=== PATIENT | female | born 1990 | race Caucasian/White ===

== ENCOUNTER 2017-06-13 11:34 | Inpatient (IN) | payer OTHER ==
[2017-06-13 12:28] VITALS: BMI 23.8
--- NOTE | 2017-06-13 13:40 | HP ---
COWS - Scale Resting Pulse: 0= [place] 80 or Below Sweatin= Chills/Flushing Restless Observation: 3= Extraneous Movement Pupil Size: 2= Moderately Dilated Bone or Joint Aches: 2= Severe Diffuse Aches Runny Nose/ Eye Tearin= Runny Nose/Eyes GI Upset > 30mins: 3= Vomiting/Diarrhea Tremor Observation: 2= Slight Tremor Visible Yawning Observation: 2= >3x During Session Anxiety or Irritability: 2=Irritable/Anxious Goose Flesh Skin: 0=Smooth Skin COWS Score: 19 Admission ROS BHS - HPI Chief Complaint: i need help to stop using percocet Allergies/Adverse Reactions: Allergies Allergy/AdvReac Type Severity Reaction Status Date / Time No Known Allergies Allergy Verified 06/13/17 13:41 History of Present Illness: this 26 years old female with opioid dependence,percocet,seeking detox,never been in detox before depression need help to stop using percocet Exam Limitations: No Limitations - Ebola screening Have you traveled outside of the country in the last 21 days: No Have you been sick,other than usual withdrawal symptoms: No - Review of Systems Constitutional: Chills, Loss of Appetite, Malaise, Night Sweats, Changes in sleep, Weakness EENT: reports: Nose Congestion Respiratory: reports: No Symptoms reported GI: reports: Diarrhea, Nausea, Vomiting, Abdominal cramping : reports: No Symptoms Reported Musculoskeletal: reports: Back Pain, Joint Pain, Muscle Pain, Joint Stiffness Integumentary: reports: Dryness Endocrine: reports: No Symptoms Reported Hematology: reports: No Symptoms Reported Psychiatric: reports: Depressed Patient History - Patient Medical History Hx Anemia: No Hx Asthma: No Hx Chronic Obstructive Pulmonary Disease (COPD): No Hx Cancer: No Hx Cardiac Disorders: No Hx Congestive Heart Failure: No Hx Hypertension: No Hx Hypercholesterolemia: No Hx Pacemaker: No HX Cerebrovascular Accident: No Hx Seizures: No Hx Dementia: No Hx Diabetes: No Hx Gastrointestinal Disorders: No Hx Liver Disease: No Hx Genitourinary Disorders: No Hx Sexually Transmitted Disorders: No Hx Renal Disease (ESRD): No Hx Thyroid Disease: No Hx Human Immunodeficiency Virus (HIV): No (06/25 negative) Hx Hepatitis C: No Hx Depression: Yes (no med) Hx Suicide Attempt: No Hx Bipolar Disorder: No Hx Schizophrenia: No Other Medical History: no suicidal,no homicidal - Patient Surgical History Past Surgical History: No - PPD History Previous Implant?: Yes Documented Results: Negative w/o proof Implanted On Prior [facility] Admission?: No PPD to be Administered?: Yes - Reproductive History Patient is a Female of Child Bearing Age (11 -55 yrs old): Yes Last Menstrual Period: 05/27/17 Patient : No - Smoking Cessation Smoking history: Never smoked - Substance & Tx. History Hx Alcohol Use: No Hx Substance Use: Yes Substance Use Type: Opiates Hx Substance Use Treatment: No - Substances Abused percocet Route: Oral Frequency: Daily Amount used: 40 to50 mgs Age of first use: 25 Date of Last Use: 06/12/17 Marijuana/Hashish Route: Smoking Frequency: Daily Amount used: 20$ Age of first use: 16 Date of Last Use: 06/11/17 Family Disease History - Family Disease History Family History: Denies Admission Physical Exam [facility] - Vital Signs Vital Signs: Vital Signs - 24 hr 06/13/17 12:25 Temperature 97.0 F L Pulse Rate 78 Respiratory 18 Rate Blood Pressure 115/76 - Physical General Appearance: Yes: Moderate Distress, Tremorous, Irritable, Sweating, Anxious HEENTM: Yes: LIAN, Nasal Congestion Respiratory: Yes: Lungs Clear, Normal Breath Sounds, No Respiratory Distress Neck: Yes: Within Normal Limits, Supple, Trachea in good position Breast: Yes: Breast Exam Deferred Cardiology: Yes: Within Normal Limits, Regular Rhythm, Regular Rate, S1, S2 Abdominal: Yes: Within Normal Limits, Normal Bowel Sounds, Non Tender, Flat, Soft Genitourinary: Yes: Within Normal Limits Back: Yes: Muscle Spasm Musculoskeletal: Yes: Back pain, Joint Stiffness, Muscle Pain Extremities: Yes: Tremors 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 NML intact, Fully Oriented, Alert, Motor Strength 5/5 Integumentary: Yes: Dry Lymphatic: Yes: Within Normal Limits - Diagnostic (1) Opioid dependence with withdrawal Current Visit: Yes Status: Acute (2) Depression Current Visit: Yes Status: Acute Cleared for Admission [facility] - Detox or Rehab [facility] Level of Care: Medically Managed Detox Regimen/Protocol: Methadone [facility] Breath Alcohol Content Breath Alcohol Content: 0 Urine Pregancy Test - Result Urine Test Results: Negative- NO Line Present Urine Drug Screen - Results Drug Screen Negative: No Urine Drug Screen Results: THC-Marijuana, OXY-Oxycodone
[2017-06-13] MEDS ORDERED: MENTHOL/PHENOL 1 EACH UD MM PRN (13:54)
[2017-06-13] MEDS ORDERED: LOPERAMIDE HCL 2 MG CAPSULE PO PRN (13:54)
[2017-06-13] MEDS ORDERED: IBUPROFEN 400 MG TABLET (FP) PO PRN (13:54)
[2017-06-13] MEDS ORDERED: ACETAMINOPHEN 325 MG TABLET (FP) PO PRN (13:54)
[2017-06-13] MEDS ORDERED: guaiFENesin/D-METHORPHAN HB 10 ML UNIT-DOSE CUPS PO PRN (13:54)
[2017-06-13] MEDS ORDERED: MAG HYDROX/AL HYDROX/SIMETH 30 ML UNIT-DOSE CUP PO PRN (13:54)
[2017-06-13] MEDS ORDERED: MAGNESIUM CITRATE 300 ML BOTTLE PO PRN (13:54)
[2017-06-13] MEDS ORDERED: MAGNESIUM HYDROX 2400MG/30ML ORAL SUSPENSION 30 ML CUP PO PRN (13:54)
[2017-06-13] MEDS ORDERED: P-EPHED 60MG/TRIPROLIDI 2.5MG TABLET PO PRN (13:54)
[2017-06-13] MEDS ORDERED: METHADONE HCL 10 MG TABLET (FOR DETOX USE ONLY) PO ONE ×2 (15:00→23:00)
[2017-06-13] MEDS: diazePAM 5 MG TABLET PO PRN ×2 (15:49→22:43)
[2017-06-13 22:15] LABS: URINE APPEARANCE CLEAR; URINE BILIRUBIN NEGATIVE (NEGATIVE); URINE BLOOD NEGATIVE (NEGATIVE); URINE COLOR LTYELLOW; URINE GLUCOSE (UA) NEGATIVE (NEGATIVE); URINE KETONE NEGATIVE (NEGATIVE); URINE LEUK ESTERASE NEGATIVE (NEGATIVE); URINE NITRITE NEGATIVE (NEGATIVE); URINE PROTEIN NEGATIVE (NEGATIVE); URINE UROBILINOGEN NEGATIVE mg/dL (0.2-1.0)
[2017-06-13] MEDS: THIAMINE HCL 100 MG TABLET (FP) PO SCH (22:43)
[2017-06-14] MEDS: diazePAM 5 MG TABLET PO PRN ×5 (06:17→23:44)
[2017-06-14] MEDS ORDERED: METHADONE HCL 10 MG TABLET (FOR DETOX USE ONLY) PO ONE (10:00)
[2017-06-14 10:20] LABS: HEMATOCRIT 44.2 % (32.4-45.2); HEMOGLOBIN 14.5 GM/dL (10.7-15.3); MCHC 32.9 g/dl (32.0-36.0); MEAN CELL VOLUME 97.3 fl (80-96); MEAN PLT VOLUME 9.1 fl (7.5-11.1); PLATELET COUNT 250 K/MM3 (134-434); RBC 4.55 M/mm3 (3.60-5.2); WHITE BLOOD COUNT 6.7 K/mm3 (4.0-10.0)
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
[2017-06-14 10:24] LABS: CHLORIDE 101 mmol/L (98-107); POTASSIUM 4.1 mmol/L (3.5-5.1); SODIUM 136 mmol/L (136-145)
[2017-06-14 10:31] LABS: ALBUMIN 3.8 g/dl (3.4-5.0); ALK PHOS 57 U/L (45-117); ANION GAP 6 (8-16); BILIRUBIN,TOTAL 0.6 mg/dL (0.2-1.0); BLOOD UREA NITROGEN 10 mg/dL (7-18); CALCIUM 9.5 mg/dL (8.5-10.1); CO2 29 mmol/L (21-32); CREATININE 0.8 mg/dL (0.55-1.02); GLUCOSE,RANDOM 120 mg/dL (74-106); SGOT/AST 14 U/L (15-37); SGPT/ALT 24 U/L (12-78); TOT PROT 7.5 g/dl (6.4-8.2)
[2017-06-14] MEDS: PRENATAL VITAMINS W/ FOLIC ACID TABLET (FP) PO SCH (10:41)
--- NOTE | 2017-06-14 11:39 | EKG ---
Test Reason : Blood Pressure : / mmHG Vent. Rate : 066 BPM Atrial Rate : 066 BPM P-R Int : 160 ms QRS Dur : 084 ms QT Int : 398 ms P-R-T Axes : 054 029 028 degrees QTc Int : 417 ms NORMAL SINUS RHYTHM WITH SINUS ARRHYTHMIA NORMAL ECG NO PREVIOUS ECGS AVAILABLE Confirmed by LESA WARD MD ([id number]) on 06/14/2017 11:39:02 AM Referred By: IRENE SIMMONS Confirmed By:LESA WARD MD
[2017-06-14] MEDS: hydrOXYzine PAMOATE 50 MG CAPSULE (FP) PO PRN ×2 (12:51→22:33)
--- NOTE | 2017-06-14 15:07 | PN ---
BHS COWS - Scale Resting Pulse: 0= [place] 80 or Below Sweatin= Chills/Flushing Restless Observation: 3= Extraneous Movement Pupil Size: 0= Normal to Room Light Bone or Joint Aches: 1= Mild Discomfort Runny Nose/ Eye Tearin= Runny Nose/Eyes GI Upset > 30mins: 1= Stomach Cramp Tremor Observation of Outstretched Hands: 1= Tremor [place], Not Seen Yawning Observation: 2= >3x During Session Anxiety or Irritability: 2=Irritable/Anxious Goose Flesh Skin: 0=Smooth Skin COWS Score: 13 S Progress Note (SOAP) Subjective: SWEATING NAUSEA RESTLESSNESS AGITATION Objective: 06/14/17 15:08 Vital Signs Temperature 98.1 F 06/14/17 10:00 Pulse Rate 81 06/14/17 10:00 Respiratory Rate 18 06/14/17 10:00 Blood Pressure 119/68 06/14/17 10:00 O2 Sat by Pulse Oximetry (%) Laboratory Last Values WBC 6.7 K/mm3 (4.0-10.0) 06/14/17 07:40 RBC 4.55 M/mm3 (3.60-5.2) 06/14/17 07:40 Hgb 14.5 GM/dL (10.7-15.3) 06/14/17 07:40 Hct 44.2 % (32.4-45.2) 06/14/17 07:40 MCV 97.3 fl (80-96) H 06/14/17 07:40 MCH 32.0 pg (25.7-33.7) 06/14/17 07:40 MCHC 32.9 g/dl (32.0-36.0) 06/14/17 07:40 RDW 13.0 % (11.6-15.6) 06/14/17 07:40 Plt Count 250 K/MM3 (134-434) 06/14/17 07:40 MPV 9.1 fl (7.5-11.1) 06/14/17 07:40 Sodium 136 mmol/L (136-145) 06/14/17 07:40 Potassium 4.1 mmol/L (3.5-5.1) 06/14/17 07:40 Chloride 101 mmol/L (98-107) 06/14/17 07:40 Carbon Dioxide 29 mmol/L (21-32) 06/14/17 07:40 Anion Gap 6 (8-16) L 06/14/17 07:40 BUN 10 mg/dL (7-18) 06/14/17 07:40 Creatinine 0.8 mg/dL (0.55-1.02) 06/14/17 07:40 Creat Clearance w eGFR > 60 (>60) 06/14/17 07:40 Random Glucose 120 mg/dL (74-106) H 06/14/17 07:40 Calcium 9.5 mg/dL (8.5-10.1) 06/14/17 07:40 Total Bilirubin 0.6 mg/dL (0.2-1.0) 06/14/17 07:40 AST 14 U/L (15-37) L 06/14/17 07:40 ALT 24 U/L (12-78) 06/14/17 07:40 Alkaline Phosphatase 57 U/L (45-117) 06/14/17 07:40 Total Protein 7.5 g/dl (6.4-8.2) 06/14/17 07:40 Albumin 3.8 g/dl (3.4-5.0) 06/14/17 07:40 Urine Color Ltyellow 06/13/17 21:00 Urine Appearance Clear 06/13/17 21:00 Urine pH 6.0 (5.0-8.0) 06/13/17 21:00 Ur Specific [place] 1.013 (1.001-1.035) 06/13/17 21:00 Urine Protein Negative (NEGATIVE) 06/13/17 21:00 Urine Glucose (UA) Negative (NEGATIVE) 06/13/17 21:00 Urine Ketones Negative (NEGATIVE) 06/13/17 21:00 Urine Blood Negative (NEGATIVE) 06/13/17 21:00 Urine Nitrite Negative (NEGATIVE) 06/13/17 21:00 Urine Bilirubin Negative (NEGATIVE) 06/13/17 21:00 Urine Urobilinogen Negative mg/dL (0.2-1.0) 06/13/17 21:00 Ur Leukocyte Esterase Negative (NEGATIVE) 06/13/17 21:00 RPR Titer Nonreactive (NONREACTIVE) 06/14/17 07:40 HIV 1&2 Antibody Screen Negative 06/14/17 07:40 HIV P24 Antigen Negative 06/14/17 07:40 LAB NOTED Assessment: 06/14/17 15:09 WITHDRAWAL SX Plan: CONTINUE DETOX
[2017-06-14] MEDS: traZODone HCL 50 MG TABLET (FP) PO SCH (22:33)
[2017-06-14] MEDS: THIAMINE HCL 100 MG TABLET (FP) PO SCH (22:33)
[2017-06-15] MEDS ORDERED: METHADONE HCL 5 MG TABLET (FOR DETOX USE ONLY) PO ONE (10:00)
[2017-06-15] MEDS: PRENATAL VITAMINS W/ FOLIC ACID TABLET (FP) PO SCH (10:47)
--- NOTE | 2017-06-15 11:23 | PN ---
[facility] CIWA - CIWA Score Nausea/Vomitin-No Nausea/No Vomiting Muscle Tremors: 3 Anxiety: 3 Agitation: 3 Paroxysmal Sweats: 3 Orientation: 0-Oriented Tacttile Disturbances: 0-None Auditory Disturbances: 0-None Visual Disturbances: 0-None Headache: 0-None Present CIWA-Ar Total Score: 12 BHS Progress Note (SOAP) Subjective: agitation anxiety sweats body aches Objective: 06/15/17 11:22 Vital Signs Temperature 97 F L 06/15/17 06:15 Pulse Rate 78 06/15/17 06:15 Respiratory Rate 18 06/15/17 06:15 Blood Pressure 101/63 06/15/17 06:15 O2 Sat by Pulse Oximetry (%) Laboratory Tests 06/13/17 06/14/17 06/14/17 21:00 07:40 07:40 WBC 6.7 RBC 4.55 Hgb 14.5 Hct 44.2 MCV 97.3 H MCH 32.0 MCHC 32.9 RDW 13.0 Plt Count 250 MPV 9.1 Sodium 136 Potassium 4.1 Chloride 101 Carbon Dioxide 29 Anion Gap 6 L BUN 10 Creatinine 0.8 Creat Clearance w eGFR > 60 Random Glucose 120 H Calcium 9.5 Total Bilirubin 0.6 AST 14 L ALT 24 Alkaline Phosphatase 57 Total Protein 7.5 Albumin 3.8 Urine Color Ltyellow Urine Appearance Clear Urine pH 6.0 Ur Specific [place] 1.013 Urine Protein Negative Urine Glucose (UA) Negative Urine Ketones Negative Urine Blood Negative Urine Nitrite Negative Urine Bilirubin Negative Urine Urobilinogen Negative Ur Leukocyte Esterase Negative RPR Titer HIV 1&2 Antibody Screen HIV P24 Antigen 06/14/17 06/14/17 07:40 07:40 WBC RBC Hgb Hct MCV MCH MCHC RDW Plt Count MPV Sodium Potassium Chloride Carbon Dioxide Anion Gap BUN Creatinine Creat Clearance w eGFR Random Glucose Calcium Total Bilirubin AST ALT Alkaline Phosphatase Total Protein Albumin Urine Color Urine Appearance Urine pH Ur Specific [place] Urine Protein Urine Glucose (UA) Urine Ketones Urine Blood Urine Nitrite Urine Bilirubin Urine Urobilinogen Ur Leukocyte Esterase RPR Titer Nonreactive HIV 1&2 Antibody Screen Negative HIV P24 Antigen Negative aaox3 ambulating no acute distress Assessment: 06/15/17 11:22 withdrawal sx Plan: continue detox increase fluids
[2017-06-15] MEDS: diazePAM 5 MG TABLET PO PRN ×2 (15:17→19:33)
[2017-06-15] MEDS: hydrOXYzine PAMOATE 50 MG CAPSULE (FP) PO PRN (22:42)
[2017-06-15] MEDS: traZODone HCL 50 MG TABLET (FP) PO SCH (22:42)
[2017-06-15] MEDS: THIAMINE HCL 100 MG TABLET (FP) PO SCH (22:42)
[2017-06-16] MEDS: diazePAM 5 MG TABLET PO PRN ×2 (07:19→11:09)
[2017-06-16] MEDS ORDERED: METHADONE HCL 5 MG TABLET (FOR DETOX USE ONLY) PO ONE (10:00)
[2017-06-16] MEDS: PRENATAL VITAMINS W/ FOLIC ACID TABLET (FP) PO SCH (11:06)
--- NOTE | 2017-06-16 11:35 | PN ---
BHS Progress Note (SOAP) Subjective: sweats anxiety Objective: 06/16/17 11:34 Vital Signs Temperature 98.1 F 06/16/17 10:00 Pulse Rate 91 H 06/16/17 10:00 Respiratory Rate 18 06/16/17 10:00 Blood Pressure 124/75 06/16/17 10:00 O2 Sat by Pulse Oximetry (%) aaox3 ambulating no acute distress Assessment: 06/16/17 11:34 withdrawal sx Plan: continue detox increase fluids
--- NOTE | 2017-06-16 17:42 | PN ---
Psychiatric Progress Note Vital Signs: Vital Signs Period Temp Pulse Resp BP Sys/Harry Pulse Ox Last 24 Hr 97.8 F-98.2 F 84-99 18-18 114-144/64-76 Date of Session: 06/16/17 Chief Complaint:: "I have insomnia and depression." HPI: Pt. is a 26 year old female with no psychiatric history that presents today c/o increase depression and insomnia. Pt. admitted to for percocet and marijuana dependence. ROS: Unremarkable. Current Medications: Active Medications Generic Name Dose Route Start Last Admin Trade Name Freq PRN Reason Stop Dose Admin Acetaminophen 650 mg 06/13/17 13:54 Tylenol - PO Q4H PRN FEVER OR PAIN Al Hydroxide/Mg Hydroxide 30 ml 06/13/17 13:54 Mylanta Oral Suspension - PO Q6H PRN DYSPEPSIA Eucalyptus/Menthol/Phenol/Sorbitol 1 each 06/13/17 13:54 Cepastat Lozenge - MM Q4H PRN SORE THROAT Guaifenesin 10 ml 06/13/17 13:54 Robitussin Dm - PO Q6H PRN COUGH Hydroxyzine Pamoate 50 mg 06/13/17 13:54 06/15/17 22:42 Vistaril - PO 50 mg Q4H PRN Administration AGITATION Ibuprofen 400 mg 06/13/17 13:54 06/15/17 10:50 Motrin - PO 400 mg Q6H PRN Administration SEVERE PAIN Loperamide HCl 4 mg 06/13/17 13:54 Imodium - PO Q6H PRN DIARRHEA Magnesium Citrate 300 ml 06/13/17 13:54 Citroma - PO Q48H PRN CONSTIPATION Magnesium Hydroxide 30 ml 06/13/17 13:54 Milk Of Magnesia - PO DAILY PRN CONSTIPATION Methadone HCl 5 mg 06/18/17 06:00 Dolophine - PO 06/18/17 06:01 ONCE@0600 ONE Methadone HCl 10 mg 06/17/17 10:00 Dolophine - PO 06/17/17 10:01 ONCE ONE Multivit/Folic Acid/Iron 1 tab 06/14/17 10:00 06/16/17 11:06 Vitamins (Sjr) - PO 1 tab DAILY ELIE Administration Pseudoephedrine/Triprolidine 1 combo 06/13/17 13:54 Actifed - PO TID PRN NASAL CONGESTION Thiamine HCl 100 mg 06/13/17 22:00 06/15/17 22:42 Vitamin B1 - PO 100 mg HS ELIE Administration Trazodone HCl 50 mg 06/14/17 22:00 06/15/17 22:42 Desyrel - PO 50 mg HS ELIE Administration Medication(s) Change(s): Yes. Trazodone to be increased to 100mg qhs. Current Side Effect: No Lab tests ordered: No Lab tests reviewed: Yes Provider note:: Hand Packer approached patient concerning psychiatric reconsultation. Pt. requesting medications to improve insomnia, depression, and anxiety. Pt. eduated on the medication trazodone and vistaril (vistaril is ordered PRN). Psychoeduation provided and explained on the importance of developing coping mechanisms. Pt. receptive to feedback. Trazodone to be increased to 100mg. No adverse effects noted from trazodone 50mg. Verbal consent given. Will continue to monitor patient. Total face to face time:: 25 Mental Status Exam - Mental Status Exam Alert and Oriented to: Time, Place, Person Cognitive Function: Good Patient Appearance: Well Groomed Mood: Sad (Pt. sad at first then became hopeful towards the end of the session. ), Hopeful Affect: Mood Congruent Patient Behavior: Appropriate, Cooperative Speech Pattern: Clear, Appropriate Voice Loudness: Normal Thought Process: Goal Oriented Thought Disorder: Not Present Hallucinations: Denies Suicidal Ideation: Denies Homicidal Ideation: Denies Insight/Judgement: Poor Sleep: Poorly Appetite: Fair Muscle strength/Tone: Normal Gait/Station: Normal Psychiatric Treatment Plan - Problem List (1) Opioid dependence with withdrawal Current Visit: Yes (2) Substance induced mood disorder Current Visit: Yes (3) Substance-induced sleep disorder Current Visit: Yes
[2017-06-16] MEDS: hydrOXYzine PAMOATE 50 MG CAPSULE (FP) PO PRN ×2 (18:09→22:34)
[2017-06-16] MEDS: THIAMINE HCL 100 MG TABLET (FP) PO SCH (22:34)
[2017-06-16] MEDS: traZODone HCL 100 MG TABLET (FP) PO SCH (22:34)
[2017-06-17] MEDS: hydrOXYzine PAMOATE 50 MG CAPSULE (FP) PO PRN ×4 (07:09→21:14)
[2017-06-17] MEDS ORDERED: METHADONE HCL 10 MG TABLET (FOR DETOX USE ONLY) PO ONE (10:00)
[2017-06-17] MEDS: PRENATAL VITAMINS W/ FOLIC ACID TABLET (FP) PO SCH (10:36)
--- NOTE | 2017-06-17 11:21 | PN ---
BHS Progress Note (SOAP) Subjective: tremors heartburn Objective: 06/17/17 11:18 sitting up on bed no acute distress Laboratory Last Values WBC 6.7 K/mm3 (4.0-10.0) 06/14/17 07:40 RBC 4.55 M/mm3 (3.60-5.2) 06/14/17 07:40 Hgb 14.5 GM/dL (10.7-15.3) 06/14/17 07:40 Hct 44.2 % (32.4-45.2) 06/14/17 07:40 MCV 97.3 fl (80-96) H 06/14/17 07:40 MCH 32.0 pg (25.7-33.7) 06/14/17 07:40 MCHC 32.9 g/dl (32.0-36.0) 06/14/17 07:40 RDW 13.0 % (11.6-15.6) 06/14/17 07:40 Plt Count 250 K/MM3 (134-434) 06/14/17 07:40 MPV 9.1 fl (7.5-11.1) 06/14/17 07:40 Sodium 136 mmol/L (136-145) 06/14/17 07:40 Potassium 4.1 mmol/L (3.5-5.1) 06/14/17 07:40 Chloride 101 mmol/L (98-107) 06/14/17 07:40 Carbon Dioxide 29 mmol/L (21-32) 06/14/17 07:40 Anion Gap 6 (8-16) L 06/14/17 07:40 BUN 10 mg/dL (7-18) 06/14/17 07:40 Creatinine 0.8 mg/dL (0.55-1.02) 06/14/17 07:40 Creat Clearance w eGFR > 60 (>60) 06/14/17 07:40 Random Glucose 120 mg/dL (74-106) H 06/14/17 07:40 Calcium 9.5 mg/dL (8.5-10.1) 06/14/17 07:40 Total Bilirubin 0.6 mg/dL (0.2-1.0) 06/14/17 07:40 AST 14 U/L (15-37) L 06/14/17 07:40 ALT 24 U/L (12-78) 06/14/17 07:40 Alkaline Phosphatase 57 U/L (45-117) 06/14/17 07:40 Total Protein 7.5 g/dl (6.4-8.2) 06/14/17 07:40 Albumin 3.8 g/dl (3.4-5.0) 06/14/17 07:40 Urine Color Ltyellow 06/13/17 21:00 Urine Appearance Clear 06/13/17 21:00 Urine pH 6.0 (5.0-8.0) 06/13/17 21:00 Ur Specific [place] 1.013 (1.001-1.035) 06/13/17 21:00 Urine Protein Negative (NEGATIVE) 06/13/17 21:00 Urine Glucose (UA) Negative (NEGATIVE) 06/13/17 21:00 Urine Ketones Negative (NEGATIVE) 06/13/17 21:00 Urine Blood Negative (NEGATIVE) 06/13/17 21:00 Urine Nitrite Negative (NEGATIVE) 06/13/17 21:00 Urine Bilirubin Negative (NEGATIVE) 06/13/17 21:00 Urine Urobilinogen Negative mg/dL (0.2-1.0) 06/13/17 21:00 Ur Leukocyte Esterase Negative (NEGATIVE) 06/13/17 21:00 RPR Titer Nonreactive (NONREACTIVE) 06/14/17 07:40 HIV 1&2 Antibody Screen Negative 06/14/17 07:40 HIV P24 Antigen Negative 06/14/17 07:40 labs noted Assessment: 06/17/17 11:20 withdrawal sx Plan: continue detox protonix
[2017-06-17] MEDS ORDERED: PANTOPRAZOLE 40 MG TABLET (FP) PO ONE (12:33)
[2017-06-17] MEDS: THIAMINE HCL 100 MG TABLET (FP) PO SCH (22:33)
[2017-06-17] MEDS: traZODone HCL 100 MG TABLET (FP) PO SCH (22:33)
[2017-06-18] MEDS: hydrOXYzine PAMOATE 50 MG CAPSULE (FP) PO PRN ×2 (02:21→06:25)
[2017-06-18] MEDS ORDERED: METHADONE HCL 5 MG TABLET (FOR DETOX USE ONLY) PO ONE (06:00)
[2017-06-18 06:38] VITALS: BP 101/55; PULSE 78; TEMP 98.3
--- NOTE | 2017-06-18 08:41 | DS ---
[facility] Detox Discharge Summary Admission Date: 06/13/17 Discharge Date: 06/18/17 - History Present History: Opioid Dependence - Physical Exam Results Vital Signs: Vital Signs Temperature 98.3 F 06/18/17 06:38 Pulse Rate 78 06/18/17 06:38 Respiratory Rate 18 06/18/17 06:38 Blood Pressure 101/55 06/18/17 06:38 O2 Sat by Pulse Oximetry (%) - Treatment Hospital Course: Detox Protocol Followed, Detoxed Safely, Responded well, Discharged Condition Good, Rehab Referral Accepted - Medication Discharge Medications: Ambulatory Orders Hydroxyzine Pamoate [Vistaril -] 50 mg PO Q8H PRN #30 capsule 06/17/17 Trazodone HCl [Desyrel -] 100 mg PO HS #30 tablet 06/17/17 - Diagnosis (1) Opioid dependence with withdrawal Current Visit: Yes Status: Chronic - AMA Did Patient Leave Against Medical Advice: No
== END 2017-06-18 09:35 | disposition home or self-care (01) | DRG 773 ==
LOC: YASAS 11:34 → Y6N 14:37
PROVIDERS: ADMIT Internal Medicine; ATTEND Internal Medicine
PROC: HZ2ZZZZ Detoxification Services for Substance Abuse Treatment (ICD-10-PCS; principal; 2017-06-13)
DX: F11.23 Opioid dependence with withdrawal (principal); F19.24 Other psychoactive substance dependence with psychoactive substance-induced mood disorder; F19.282 Other psychoactive substance dependence with psychoactive substance-induced sleep disorder; F32.9 Major depressive disorder, single episode, unspecified; G47.00 Insomnia, unspecified
CPT/HCPCS: 36415; 80053; 81003; 85027; 86593; 87389; 93005; 93010

== ENCOUNTER 2024-08-24 20:16 | Inpatient (IN) | payer OTHER ==
[2024-08-24 21:19] VITALS: BMI 23.7
[2024-08-24] MEDS ORDERED: MAG HYDROX/AL HYDROX/SIMETH 30 ML UNIT-DOSE CUP PO PRN (21:40)
[2024-08-24] MEDS ORDERED: BISMUTH SUBSALICYLATE 524 MG/30 ML PO PRN (21:40)
[2024-08-24] MEDS ORDERED: NICOTINE POLACRILEX 2 MG GUM BUC PRN (21:40)
[2024-08-24] MEDS ORDERED: NICOTINE POLACRILEX 2 MG LOZENGE BC PRN (21:40)
[2024-08-24] MEDS ORDERED: POLYETHYLENE GLYCOL (HEALTHYLAX) 3350 17 GM PACKET PO PRN (21:40)
[2024-08-24] MEDS ORDERED: guaiFENesin 600 MG TABLET.ER (FP) PO PRN (21:40)
[2024-08-24] MEDS ORDERED: BENZONATATE 200 MG CAPSULE PO PRN (21:40)
[2024-08-24] MEDS ORDERED: BENZOCAINE/MENTHOL (CHLORASEPTIC ) LOZENGE MM PRN (21:40)
[2024-08-24] MEDS ORDERED: ONDANSETRON *ODT* 4 MG TABLET SL PRN (21:40)
[2024-08-24] MEDS ORDERED: DICYCLOMINE HCL 10 MG CAPSULE PO PRN (21:40)
[2024-08-24] MEDS ORDERED: LOPERAMIDE HCL 2 MG CAPSULE PO PRN (21:40)
[2024-08-24] MEDS ORDERED: ACETAMINOPHEN 325 MG TABLET (FP) PO PRN (21:40)
[2024-08-24] MEDS ORDERED: NALOXONE (NARCAN) HCL 4 MG/0.1 ML SPRAY NS PRN (21:40)
[2024-08-24] MEDS ORDERED: MAGNESIUM HYDROX 2400MG/30ML ORAL SUSPENSION 30 ML CUP PO PRN (21:40)
[2024-08-24] MEDS ORDERED: chlordiazePOXIDE HCL 25 MG CAPSULE ONE (23:30)
[2024-08-24] MEDS ORDERED: propRANOLol HCL 10 MG TABLET ONE (23:30)
[2024-08-24] MEDS ORDERED: levETIRAcetam 500 MG TABLET (FP) PO ONE (23:30)
[2024-08-24] MEDS: propRANOLol HCL 10 MG TABLET PO ONE (23:38)
[2024-08-24] MEDS: chlordiazePOXIDE HCL 25 MG CAPSULE PO ONE (23:38)
[2024-08-24] MEDS: MELATONIN 5 MG TABLETS PO SCH (23:39)
[2024-08-24] MEDS: levETIRAcetam 500 MG TABLET (FP) PO SCH (23:39)
[2024-08-24] MEDS: THIAMINE 100 MG TABLET PO SCH (23:46)
[2024-08-25] MEDS: METHOCARBAMOL 500 MG TABLET PO PRN (00:04)
[2024-08-25] MEDS: hydrOXYzine PAMOATE 25 MG CAPSULE (FP) PO PRN (00:04)
[2024-08-25] MEDS: IBUPROFEN 600 MG TABLET (FP) PO PRN (00:08)
[2024-08-25] MEDS: chlordiazePOXIDE HCL 25 MG CAPSULE PO SCH (00:09)
[2024-08-25] MEDS: PRENATAL VITAMINS W/ FOLIC ACID TABLET (FP) PO SCH (10:11)
[2024-08-25] MEDS: NICOTINE 14 MG/24 HOURS TOPICAL PATCH TD SCH (10:44)
[2024-08-25 10:53] LABS: HEMOGLOBIN 12.7 g/dL (11.2-15.7); MCHC 31.8 g/dl (32.2-35.5); MEAN CELL VOLUME 98.5 fl (79.4-94.8); MEAN PLT VOLUME 9.8 fl (9.4-12.3); PLATELET COUNT # 277 x10^3/uL (182-369)
[2024-08-25 11:07] LABS: POTASSIUM 4.4 mmol/L (3.5-5.1)
[2024-08-25 11:20] LABS: ALBUMIN 3.1 g/dl (3.4-5.0); CALCIUM 9.8 mg/dL (8.5-10.1)
[2024-08-25 11:21] LABS: BLOOD UREA NITROGEN 10.7 mg/dL (7-18)
[2024-08-25 11:24] LABS: CREATININE 0.8 mg/dL (0.55-1.3)
[2024-08-25 11:25] LABS: BILIRUBIN,TOTAL 0.2 mg/dL (0.2-1); TOT PROT 6.1 g/dl (6.4-8.2)
[2024-08-25] MEDS: chlordiazePOXIDE HCL 25 MG CAPSULE PO PRN (12:42)
[2024-08-25] MEDS: QUEtiapine FUMARATE 100 MG TABLET (FP) PO SCH (22:03)
[2024-08-26] MEDS: chlordiazePOXIDE HCL 25 MG CAPSULE PO SCH (05:55)
[2024-08-26 13:43] LABS: HIV INTERPRETATION NEGATIVE (NEGATIVE)
[2024-08-26] MEDS: hydrOXYzine PAMOATE 25 MG CAPSULE (FP) PO PRN (16:35)
[2024-08-26] MEDS: QUEtiapine FUMARATE 50 MG TABLET PO SCH (22:13)
[2024-08-27] MEDS: chlordiazePOXIDE HCL 10 MG CAPSULE PO SCH (05:17)
[2024-08-27] MEDS: chlordiazePOXIDE HCL 10 MG CAPSULE PO PRN (12:38)
[2024-08-28] MEDS: chlordiazePOXIDE HCL 10 MG CAPSULE PO SCH (04:48)
[2024-08-28] MEDS: IBUPROFEN 400 MG TABLET (FP) PO PRN (12:27)
[2024-08-29] MEDS: chlordiazePOXIDE HCL 10 MG CAPSULE PO ONE (05:26)
[2024-08-29 06:07] VITALS: TEMP 97.9
[2024-08-29 08:54] VITALS: BP 132/76; PULSE 98; RESP 18
== END 2024-08-29 09:47 | disposition home or self-care (01) | DRG 773 ==
LOC: YASAS 20:16 → Y3N 23:31
PROVIDERS: ADMIT Allergy & Immunology; ATTEND Allergy & Immunology
PROC: HZ2ZZZZ Detoxification Services for Substance Abuse Treatment (ICD-10-PCS; principal; 2024-08-24)
DX: F10.230 Alcohol dependence with withdrawal, uncomplicated (principal); F11.20 Opioid dependence, uncomplicated; F13.20 Sedative, hypnotic or anxiolytic dependence, uncomplicated; F12.20 Cannabis dependence, uncomplicated; F16.20 Hallucinogen dependence, uncomplicated; F17.210 Nicotine dependence, cigarettes, uncomplicated; F39 Unspecified mood [affective] disorder; F41.9 Anxiety disorder, unspecified; F32.A Depression, unspecified; F43.10 Post-traumatic stress disorder, unspecified; Z62.810 Personal history of physical and sexual abuse in childhood
CPT/HCPCS: 36415; 80053; 80305; 80307; 81025; 85027; 86780; 87389; 93005; 93010